=== PATIENT | male | born 1940 | race Caucasian/White ===

== ENCOUNTER 2024-10-03 14:51 | Inpatient (IN) ==
[2024-10-03] MEDS ORDERED: GADOBENATE DIMEGLUMINE 15 ML/VIAL IV ONE (14:52)
[2024-10-03] MEDS ORDERED: IOPAMIDOL 100 ML BOTTLE IV ONE ×2 (14:52)
[2024-10-03] MEDS ORDERED: 0.9 % SODIUM CHLORIDE 1,000 ML IV SCH (15:15)
[2024-10-03 15:48] LABS: Basophils # (Auto) 0.04 K/mcL (0.00-0.30); Basophils % (Auto) 0.6 % (0.0-2.0); Eosinophils % (Auto) 3.2 % (0.0-7.0); Hematocrit 38.7 % (40.1-51.0); Lymphocytes # (Auto) 2.47 K/mcL (1.50-4.80); Lymphocytes % (Auto) 39.9 % (15.5-49.0); Mean Cell Volume 88.6 fL (80.0-100.0); Mean Corpuscular HGB Conc 33.6 g/dL (31.0-36.0); Mean Platelet Volume 11.5 fL (8.8-12.5); Monocytes # (Auto) 0.48 K/mcL (0.10-0.90); Monocytes % (Auto) 7.8 % (1.0-12.0); Neutrophils % (Auto) 48.3 % (38.0-78.0); Platelet Count 157 K/mcL (140-440); RBC 4.37 M/mcL (4.63-6.08); Red Cell Distribution Width 13.9 % (11.5-14.5); WBC 6.2 K/mcL (4.5-11.0)
[2024-10-03 16:01] LABS: Alcohol, Blood < 10.1 mg/dL; Alcohol,Blood < 0.010 gm/dL (<0.010)
[2024-10-03 16:05] LABS: ALT/SGPT 18 U/L (<40); AST/SGOT 27 U/L (<40); Albumin 3.8 gm/dL (3.2-5.2); Albumin/Globulin Ratio 1.3 (1.0-2.3); Alkaline Phosphatase 266 U/L (39-117); Bilirubin,Total 0.4 mg/dL (0.1-1.0); Blood Urea Nitrogen 23 mg/dL (8-23); Calcium 9.2 mg/dL (8.6-10.4); Carbon Dioxide 23 mmol/L (22-30); Chloride 101 mmol/L (96-108); Globulin 2.9 gm/dL (2.2-3.7); Glomerular Filtration Rate 69; Glucose 93 mg/dL (70-105); Potassium 3.9 mmol/L (3.3-5.1); Sodium 135 mmol/L (133-145); Thyroid Stimulating Hormone 1.43 uIU/mL (0.27-5.01)
[2024-10-03 16:47] LABS: Free T4 (Free Thyroxine) 1.26 ng/dL (0.93-1.70)
[2024-10-03 17:01] LABS: Appearance,Urine CLEAR (Clear); Bilirubin,Urine Negative (Negative); Color,Urine YELLOW; Glucose,Urine (UA) Negative (Negative); Ketones,Urine 5 mg/dL (Negative); Leukocyte Esterase,Urine Negative /uL (Negative); Mucus,Urine FEW /hpf; Nitrate,Urine Negative (Negative); Protein,Urine Negative (Negative); Specific Gravity,Urine 1.012 (1.000-1.035); Urine Blood 0.03 mg/dL (Negative); Urine RBC 3 /hpf (0-3); Urine Squamous Epithelial Cell < 1 /hpf (0-4); Urine WBC < 1 /hpf (0-4); Urobilinogen,Urine Negative
[2024-10-03 17:27] LABS: Amphetamine Screen,Urine None detected; Barbiturate Screen,Urine None detected; Benzodiazepines Screen,Urine None detected; Cannabinoid Screen,Urine None detected; Cocaine Screen,Urine None detected; Fentanyl, Urine Screen None Detected; Opiate Screen,Urine None detected; Oxycodone, Urine Screen None detected; Phencyclidine Screen,Urine None detected
[2024-10-03] MEDS: ASPIRIN 81 MG TAB.CHEW CHEWED ONE (18:04)
[2024-10-03 18:24] LABS: Estimated Average Glucose(eAG) 120 mg/dL; Hemoglobin A1C 5.8 % Hgb (4.0-6.0)
[2024-10-03] MEDS ORDERED: SENNOSIDES 1 TABLET PO PRN (20:35)
[2024-10-03] MEDS ORDERED: LACTULOSE 20 GM/30 ML ORAL.SOL PO PRN (20:35)
[2024-10-03] MEDS: 0.9 % SODIUM CHLORIDE 10 ML SYRINGE IV SCH (21:06)
[2024-10-03] MEDS: ATORVASTATIN 40 MG TABLET PO SCH (21:06)
[2024-10-03] MEDS: DOCUSATE SODIUM 100 MG CAPSULE PO SCH (21:06)
[2024-10-03] MEDS: ONDANSETRON 4 MG/2 ML VIAL IV PRN (21:27)
[2024-10-04 05:55] LABS: Basophils # (Auto) 0.03 K/mcL (0.00-0.30); Basophils % (Auto) 0.4 % (0.0-2.0); Eosinophils % (Auto) 1.2 % (0.0-7.0); Hematocrit 41.3 % (40.1-51.0); Lymphocytes # (Auto) 2.01 K/mcL (1.50-4.80); Lymphocytes % (Auto) 23.9 % (15.5-49.0); Mean Cell Volume 88.6 fL (80.0-100.0); Mean Corpuscular HGB Conc 33.9 g/dL (31.0-36.0); Mean Platelet Volume 11.5 fL (8.8-12.5); Monocytes # (Auto) 0.76 K/mcL (0.10-0.90); Neutrophils % (Auto) 65.4 % (38.0-78.0); Platelet Count 165 K/mcL (140-440); RBC 4.66 M/mcL (4.63-6.08); Red Cell Distribution Width 14.1 % (11.5-14.5); WBC 8.4 K/mcL (4.5-11.0)
[2024-10-04 06:20] LABS: C-Reactive Protein < 0.30 mg/dL (0.03-0.80)
[2024-10-04 06:22] LABS: ALT/SGPT 17 U/L (<40); AST/SGOT 27 U/L (<40); Albumin 3.8 gm/dL (3.2-5.2); Albumin/Globulin Ratio 1.3 (1.0-2.3); Alkaline Phosphatase 281 U/L (39-117); Bilirubin,Total 0.5 mg/dL (0.1-1.0); Blood Urea Nitrogen 19 mg/dL (8-23); Calcium 9.6 mg/dL (8.6-10.4); Carbon Dioxide 24 mmol/L (22-30); Chloride 100 mmol/L (96-108); Glomerular Filtration Rate 78; Glucose 90 mg/dL (70-105); Potassium 4.4 mmol/L (3.3-5.1); Sodium 136 mmol/L (133-145)
[2024-10-04 07:54] LABS: HDL Cholesterol 49 mg/dL (>40); LDL Cholesterol,Calculated 120 mg/dL (<100); Non-HDL Cholesterol 136 mg/dL (<130); Triglycerides 79 mg/dL (<150)
[2024-10-04] MEDS: ASPIRIN 81 MG TAB.CHEW CHEWED SCH (08:53)
[2024-10-04] MEDS: APIXABAN 5 MG TABLET PO SCH (08:53)
[2024-10-04] MEDS: ACETAMINOPHEN 325 MG TABLET PO PRN (18:56)
[2024-10-05 06:47] LABS: Basophils # (Auto) 0.04 K/mcL (0.00-0.30); Basophils % (Auto) 0.6 % (0.0-2.0); Eosinophils # (Auto) 0.34 K/mcL (0.00-0.70); Eosinophils % (Auto) 4.8 % (0.0-7.0); Hematocrit 39.3 % (40.1-51.0); Hemoglobin 13.6 g/dL (13.7-17.5); Lymphocytes % (Auto) 25.2 % (15.5-49.0); Mean Cell Volume 88.7 fL (80.0-100.0); Mean Corpuscular HGB Conc 34.6 g/dL (31.0-36.0); Mean Platelet Volume 12.3 fL (8.8-12.5); Monocytes # (Auto) 0.62 K/mcL (0.10-0.90); Monocytes % (Auto) 8.7 % (1.0-12.0); Neutrophils % (Auto) 60.6 % (38.0-78.0); Platelet Count 147 K/mcL (140-440); RBC 4.43 M/mcL (4.63-6.08); Red Cell Distribution Width 14.2 % (11.5-14.5); WBC 7.1 K/mcL (4.5-11.0)
[2024-10-05 07:00] LABS: C-Reactive Protein 1.44 mg/dL (0.03-0.80)
[2024-10-05 07:04] LABS: ALT/SGPT 15 U/L (<40); AST/SGOT 24 U/L (<40); Albumin 3.4 gm/dL (3.2-5.2); Albumin/Globulin Ratio 1.2 (1.0-2.3); Alkaline Phosphatase 252 U/L (39-117); Bilirubin,Total 0.5 mg/dL (0.1-1.0); Blood Urea Nitrogen 29 mg/dL (8-23); Calcium 9.2 mg/dL (8.6-10.4); Carbon Dioxide 22 mmol/L (22-30); Chloride 102 mmol/L (96-108); Globulin 2.9 gm/dL (2.2-3.7); Glomerular Filtration Rate 61; Glucose 87 mg/dL (70-105); Sodium 137 mmol/L (133-145)
[2024-10-05] MEDS: OMEPRAZOLE 20 MG CAPSULE PO SCH (07:41)
[2024-10-05] MEDS: CEFDINIR 300 MG CAPSULE PO SCH (09:38)
[2024-10-05] MEDS: DOXYCYCLINE HYCLATE 100 MG TABLET.ORL PO SCH (09:38)
[2024-10-05] MEDS ORDERED: GADOBENATE DIMEGLUMINE 15 ML/VIAL IV ONE (14:33)
[2024-10-06 07:08] LABS: Basophils # (Auto) 0.05 K/mcL (0.00-0.30); Basophils % (Auto) 0.6 % (0.0-2.0); Eosinophils # (Auto) 0.35 K/mcL (0.00-0.70); Eosinophils % (Auto) 4.1 % (0.0-7.0); Hematocrit 40.2 % (40.1-51.0); Hemoglobin 13.4 g/dL (13.7-17.5); Lymphocytes # (Auto) 2.13 K/mcL (1.50-4.80); Lymphocytes % (Auto) 24.9 % (15.5-49.0); Mean Cell Volume 90.1 fL (80.0-100.0); Mean Corpuscular HGB Conc 33.3 g/dL (31.0-36.0); Mean Platelet Volume 12.1 fL (8.8-12.5); Monocytes # (Auto) 0.74 K/mcL (0.10-0.90); Monocytes % (Auto) 8.7 % (1.0-12.0); Neutrophils % (Auto) 61.5 % (38.0-78.0); Platelet Count 169 K/mcL (140-440); RBC 4.46 M/mcL (4.63-6.08); Red Cell Distribution Width 14.4 % (11.5-14.5); WBC 8.5 K/mcL (4.5-11.0)
[2024-10-06 07:11] LABS: ALT/SGPT 15 U/L (<40); AST/SGOT 26 U/L (<40); Albumin 3.6 gm/dL (3.2-5.2); Albumin/Globulin Ratio 1.3 (1.0-2.3); Alkaline Phosphatase 265 U/L (39-117); Bilirubin,Total 0.4 mg/dL (0.1-1.0); Blood Urea Nitrogen 26 mg/dL (8-23); C-Reactive Protein 0.98 mg/dL (0.03-0.80); Calcium 9.3 mg/dL (8.6-10.4); Carbon Dioxide 24 mmol/L (22-30); Chloride 101 mmol/L (96-108); Globulin 2.7 gm/dL (2.2-3.7); Glomerular Filtration Rate 69; Glucose 85 mg/dL (70-105); Potassium 4.3 mmol/L (3.3-5.1); Sodium 136 mmol/L (133-145)
[2024-10-07 07:46] LABS: Basophils # (Auto) 0.05 K/mcL (0.00-0.30); Basophils % (Auto) 0.9 % (0.0-2.0); Eosinophils # (Auto) 0.36 K/mcL (0.00-0.70); Eosinophils % (Auto) 6.2 % (0.0-7.0); Hematocrit 39.4 % (40.1-51.0); Hemoglobin 13.3 g/dL (13.7-17.5); Lymphocytes # (Auto) 1.72 K/mcL (1.50-4.80); Lymphocytes % (Auto) 29.5 % (15.5-49.0); Mean Corpuscular HGB Conc 33.8 g/dL (31.0-36.0); Mean Platelet Volume 12.3 fL (8.8-12.5); Monocytes % (Auto) 10.3 % (1.0-12.0); Neutrophils % (Auto) 52.9 % (38.0-78.0); Platelet Count 162 K/mcL (140-440); RBC 4.38 M/mcL (4.63-6.08); Red Cell Distribution Width 14.1 % (11.5-14.5); WBC 5.8 K/mcL (4.5-11.0)
[2024-10-07 08:03] LABS: ALT/SGPT 15 U/L (<40); AST/SGOT 27 U/L (<40); Albumin 3.4 gm/dL (3.2-5.2); Albumin/Globulin Ratio 1.3 (1.0-2.3); Alkaline Phosphatase 256 U/L (39-117); Bilirubin,Total 0.4 mg/dL (0.1-1.0); Blood Urea Nitrogen 27 mg/dL (8-23); C-Reactive Protein 0.68 mg/dL (0.03-0.80); Calcium 9.1 mg/dL (8.6-10.4); Carbon Dioxide 23 mmol/L (22-30); Chloride 104 mmol/L (96-108); Globulin 2.6 gm/dL (2.2-3.7); Glomerular Filtration Rate 78; Glucose 91 mg/dL (70-105); Potassium 4.4 mmol/L (3.3-5.1); Sodium 139 mmol/L (133-145)
[2024-10-08 07:27] LABS: Blood Urea Nitrogen 25 mg/dL (8-23); Calcium 8.9 mg/dL (8.6-10.4); Carbon Dioxide 23 mmol/L (22-30); Chloride 103 mmol/L (96-108); Glomerular Filtration Rate 78; Glucose 90 mg/dL (70-105); Potassium 4.4 mmol/L (3.3-5.1); Sodium 137 mmol/L (133-145)
[2024-10-08] MEDS: THIAMINE 100 MG/ML VIAL IM ONE (18:33)
[2024-10-09] MEDS: THIAMINE 100 MG/ML VIAL IM ONE (07:43)
[2024-10-09 11:33] VITALS: TEMP 97.6; O2SAT 98
== END 2024-10-09 12:15 | DRG 92 ==
LOC: ICU 14:51 → ED 14:51 → ICU 20:30 → MEDSUR 10-05 16:05
PROVIDERS: ADMIT Student in an Organized Health Care Education/Training Program; ATTEND Student in an Organized Health Care Education/Training Program